=== PATIENT | female | born 1955 | race Caucasian/White ===

== ENCOUNTER 2020-08-11 18:25 | Emergency (ER) | payer MEDICAID ==
[~2020-08-11] VITALS: Ht 167.6 cm; Wt 99.8 kg
[2020-08-11 18:45] VITALS: BP 128/87
[2020-08-11] MEDS ORDERED: Omnipaque-300 100ml vial INJ PRN (19:00)
--- NOTE | 2020-08-11 19:01 | Emergency Room Report ---
History of Present Illness General Chief Complaint: Abdominal Pain Source: Patient Present Illness HPI Patient is a 64-year-old female presents for increased epigastric pain rating to her back. Prior history of cholecystectomy as well as gastric bypass. Reports having recent vaccination for influenza approximately 2 weeks ago. Denies any vomiting or hematemesis. Reports of increased dark-colored urine. Recent visit to urgent care and had been given Pepcid as well as Zofran. Had been having some improvement in symptoms. Reports having some discoloration of her urine. Denies any vomiting or diarrhea. Denies any cough. Patient had onset of pain several days ago. Episodic pain radiating to her back. Denies any chest discomfort. States her pain is currently minimal. Had noticed dark-colored urine after taking her medications. 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 COVID-19 Screening: Negative COVID-19 COVID-19 Testing [place] [facility] [place] Past Medical History: see triage record Past Surgical History: ubaldo Now: No Reviewed Nursing Documentation: PMH: Agreed; PSxH: Agreed Review of Systems All Other Systems: negative except mentioned in HPI Physical Exam Vital Signs Date Time Temp Pulse Resp B/P (MAP) Pulse Ox O2 Delivery O2 Flow Rate FiO2 08/11/20 18:27 98.4 81 19 128/87 (101) 94 Room Air Sp02 EP Interpretation: reviewed, normal General Appearance: normal inspection, well appearing, no apparent distress, alert, GCS 15, obese Head: atraumatic ENT: normal ENT inspection, hearing grossly normal, normal voice Neck: normal inspection, full range of motion, supple, no bony tend Respiratory: normal inspection, lungs clear, normal breath sounds, no respiratory distress, no retraction, no wheezing Cardiovascular #1: regular rate, rhythm, no edema Gastrointestinal: normal inspection, normal bowel sounds, non tender, soft, no guarding, no hernia, other - Healed laparoscopic surgical incision sites. 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 Differential diagnosis include was not limited to pancreatitis, gastritis, common duct stone, anxiety among others. Because of complexity of patient's case laboratory tests and imaging studies were ordered.CT imaging showed postsurgical changes from recent cholecystectomy, simple appearing of fluid collection within the gallbladder fossa measuring 1.8 x 4.5 cm favored to represent a postsurgical seroma. Less likely cystic dilation of the cystic duct stump no biliary dilation patient's liver function tests were noted to be somewhat abnormal with hyperbilirubinemia. Patient will likely be transferred for further evaluation of postoperative hyperbilirubinemia. Patient will be transferred to [facility] for further evaluation and treatment. She is currently stable for transfer. Coronavirus testing was ordered.Patient was given antibiotics. Results of laboratory studies as well as imaging studies were discussed with the patient at length. Patient will likely be transferred for higher level of care.Patient was discussed with Dr. Arambula who accepted the patient to [facility] for further work-up of hyperbilirubinemia. Labs Test 08/11/20 19:05 08/11/20 19:20 Urine Color Yellow Urine Appearance Clear Urine pH 6.5 (4.5-8.0) Urine Specific [place] 1.005 (1.005-1.035) Urine Protein Negative (NEGATIVE) Urine Glucose (UA) Negative (NEGATIVE) Urine Ketones Negative (NEGATIVE) Urine Blood 2+ (NEGATIVE) Urine Nitrite Negative (NEGATIVE) Urine Bilirubin 2+ (NEGATIVE) Urine Ictotest Positive (NEGATIVE) Urine Urobilinogen 4 MG/DL (0.0-1.0) Urine Leukocyte Esterase 2+ (NEGATIVE) Urine RBC 2-4 /HPF (0 - 2) Urine WBC 5-10 /HPF (0 - 2) Urine Squamous Epithelial Cells Many /LPF (NONE/OCC) Urine Bacteria Few /HPF (NONE) White Blood Count 7.6 K/UL (4.8-10.8) Red Blood Count 4.96 M/UL (4.20-5.40) Hemoglobin 11.7 G/DL (12.0-16.0) Hematocrit 37.5 % (37.0-47.0) Mean Corpuscular Volume 76 FL (80-99) Mean Corpuscular Hemoglobin 23.6 PG (27.0-31.0) Mean Corpuscular Hemoglobin Concent 31.2 G/DL (32.0-36.0) Red Cell Distribution Width 16.8 % (11.6-14.8) Platelet Count 241 K/UL (150-450) Mean Platelet Volume 7.4 FL (6.5-10.1) Neutrophils (%) (Auto) 74.1 % (45.0-75.0) Lymphocytes (%) (Auto) 17.9 % (20.0-45.0) Monocytes (%) (Auto) 5.7 % (1.0-10.0) Eosinophils (%) (Auto) 1.4 % (0.0-3.0) Basophils (%) (Auto) 0.9 % (0.0-2.0) Sodium Level 138 MMOL/L (136-145) Potassium Level 3.4 MMOL/L (3.5-5.1) Chloride Level 101 MMOL/L (98-107) Carbon Dioxide Level 30 MMOL/L (21-32) Anion Gap 7 mmol/L (5-15) Blood Urea Nitrogen 5 mg/dL (7-18) Creatinine 1.0 MG/DL (0.55-1.30) Estimat Glomerular Filtration Rate 56.2 mL/min (>60) Glucose Level 112 MG/DL (74-106) Calcium Level 8.6 MG/DL (8.5-10.1) Total Bilirubin 4.4 MG/DL (0.2-1.0) Direct Bilirubin 3.7 MG/DL (0.0-0.3) Aspartate Amino Transf (AST/SGOT) 508 U/L (15-37) Alanine Aminotransferase (ALT/SGPT) 404 U/L (12-78) Alkaline Phosphatase 432 U/L (46-116) Troponin I 0.000 ng/mL (0.000-0.056) Total Protein 7.2 G/DL (6.4-8.2) Albumin 3.6 G/DL (3.4-5.0) Globulin 3.6 g/dL Albumin/Globulin Ratio 1.0 (1.0-2.7) Lipase 182 U/L (73-393) EKG Diagnostic Results Rate: normal Rhythm: NSR ST Segments: no acute changes Last Vital Signs Date Time Temp Pulse Resp B/P (MAP) Pulse Ox O2 Delivery O2 Flow Rate FiO2 08/11/20 18:45 81 19 Room Air 08/11/20 18:45 98.4 128/87 94 Status: unchanged Disposition: ADMITTED INPATIENT Condition: Stable Scripts No Active Prescriptions or Reported Meds Referrals: [facility] (PCP) Harpal Faircihld MD Aug 11, 2020 19:01
[2020-08-11 19:29] LABS: APPEARANCE,URINE CLEAR; BILIRUBIN, URINE 2+ (NEGATIVE); GLUCOSE, URINE (UA) NEGATIVE (NEGATIVE); KETONES,URINE NEGATIVE (NEGATIVE); LEUKOCYTE ESTERASE ,URINE 2+ (NEGATIVE); NITRITE,URINE NEGATIVE (NEGATIVE); PH,URINE 6.5 (4.5-8.0); PROTEIN,URINE NEGATIVE (NEGATIVE); UROBILINOGEN,URINE 4 MG/DL (0.0-1.0)
[2020-08-11 19:45] LABS: BASOPHILS % (AUTO) 0.9 % (0.0-2.0); EOSINOPHILS % (AUTO) 1.4 % (0.0-3.0); HEMATOCRIT 37.5 % (37.0-47.0); HEMOGLOBIN 11.7 G/DL (12.0-16.0); LYMPHOCYTES % (AUTO) 17.9 % (20.0-45.0); MEAN CORPUSCULAR VOLUME 76 FL (80-99); MONOCYTES % (AUTO) 5.7 % (1.0-10.0); NEUTROPHILS % (AUTO) 74.1 % (45.0-75.0); PLATELET COUNT 241 K/UL (150-450); RED BLOOD COUNT 4.96 M/UL (4.20-5.40); RED CELL DISTRIBUTION WIDTH 16.8 % (11.6-14.8); WHITE BLOOD COUNT 7.6 K/UL (4.8-10.8)
[2020-08-11 19:51] LABS: COLOR,URINE YELLOW
[2020-08-11 20:02] LABS: CALCIUM 8.6 MG/DL (8.5-10.1); POTASSIUM 3.4 MMOL/L (3.5-5.1)
[2020-08-11 20:12] LABS: ALBUMIN 3.6 G/DL (3.4-5.0); BILIRUBIN,TOTAL 4.4 MG/DL (0.2-1.0)
[2020-08-11 20:13] LABS: BILIRUBIN,DIRECT 3.7 MG/DL (0.0-0.3)
--- NOTE | 2020-08-11 20:32 | Diagnostic Imaging Report ---
EXAM: CT Abdomen and Pelvis With Intravenous Contrast CLINICAL HISTORY: ABD PAIN TECHNIQUE: Axial computed tomography images of the abdomen and pelvis with intravenous contrast. CTDI is 15.1 mGy and DLP is 810.1 mGy-cm. One or more of the following dose reduction techniques were used: automated exposure control, adjustment of the mA and/or kV according to patient size, use of iterative reconstruction technique. COMPARISON: 06/21/2020 FINDINGS: Lung bases: Unremarkable. ABDOMEN: Liver: Unremarkable. Gallbladder and bile ducts: Postsurgical changes from a recent cholecystectomy. Simple appearing fluid collection within the gallbladder fossa measuring 1.8 x 4.5 cm. No biliary dilatation. No radiopaque stones. Pancreas: Unremarkable. Spleen: Unremarkable. Adrenals: Unremarkable. Kidneys and ureters: Unremarkable. No obstructing stones. No hydronephrosis. Stomach and bowel: Status post gastric bypass. No bowel obstruction or inflammatory changes. PELVIS: Appendix: No findings to suggest acute appendicitis. Bladder: Unremarkable. Reproductive: Unremarkable as visualized. ABDOMEN and PELVIS: Intraperitoneal space: Unremarkable. No free air. No significant fluid collection. Bones/joints: No acute fracture. Soft tissues: Unremarkable. Vasculature: Unremarkable. Lymph nodes: Unremarkable. IMPRESSION: 1. Postsurgical changes from a recent cholecystectomy. Simple appearing fluid collection within the gallbladder fossa measuring 1.8 x 4.5 cm. Favored to represent a postsurgical seroma. Less likely cystic dilatation of the cystic duct stump. 2. No biliary dilatation. No radiopaque stones. 3. Status post Contreras-en-Y gastric bypass.
[2020-08-11] MEDS ORDERED: Piperacillin/Tazobactam 3.375 GM in NS 110 ML IVPB ONE (20:45)
[2020-08-11 21:00] VITALS: BP 126/82
[2020-08-11] MEDS ORDERED: Ketorolac 30mg Inj IV ONE (22:00)
[2020-08-11] MEDS ORDERED: D5 1/2NS w/KCl 20mEq 1,000 ML IV SCH (22:15)
[2020-08-11 23:00] VITALS: BP 118/85
[2020-08-12] VITALS: BP 118/85
== END 2020-08-12 | disposition other institution (70) ==
LOC: EMR 18:46
DX: E80.6 Other disorders of bilirubin metabolism (principal); K91.872 Postprocedural seroma of a digestive system organ or structure following a digestive system procedure; K75.9 Inflammatory liver disease, unspecified; Z90.49 Acquired absence of other specified parts of digestive tract; Z98.84 Bariatric surgery status
CPT/HCPCS: 36415; 74177; 80053; 81003; 82248; 83690; 84484; 85025; 93005; 96361; 96365; 96375; J1885; J2543; J7040; Q9965; U0002; Z7502; 99284